=== PATIENT | female | born 1965 | race Caucasian/White ===

== ENCOUNTER → 2016-05-30 | Outpatient (CLI) | payer BC ==
[2014-10-17 06:48] VITALS: BP 108/63
[~2016-05-30] MED LIST: BIOT5TAB PO; CHOL5000 PO; ESOM40CA PO; LORA10TA3 PO; MULT1TAB52 PO; OXYC-250 PO; WHEA1POW5 PO
--- NOTE | 2016-05-30 12:34 | RAD ---
EXAM: Left thumb, 3 views. HISTORY: Pain. COMPARISON: None. FINDINGS:Frontal, lateral and oblique views of the left thumb are obtained. There is no fracture, dislocation or subluxation. No foreign body is seen. IMPRESSION: No acute osseous finding.
== END | disposition home or self-care (01) ==
LOC: DXRADRC 12:14
PROVIDERS: ATTEND Family Medicine
DX: M79.645 Pain in left finger(s) (principal)
CPT/HCPCS: 73140

== ENCOUNTER → 2016-09-12 | Outpatient (CLI) | payer BC ==
[2014-10-17 06:48] VITALS: BP 108/63
[~2016-09-12] MED LIST changes: -OXYC-250 PO; +OXYC-328 PO
--- NOTE | 2016-09-12 17:26 | RAD ---
Right foot, left foot, right hand and left hand radiographs 09/12/2016 at 1443 hours Indication: Polyarthralgia Comparison: None available Technique: 3 views of the right foot, 3 views of the left foot, 3 views the right hand and 3 views of the left hand are provided. Findings: Right foot: There is mild joint space narrowing at the first metatarsophalangeal joint with subchondral sclerosis. Otherwise, the joint spaces are maintained. No acute fracture or dislocation. No soft tissue swelling. No osseous erosions are identified. Posterior plantar calcaneal enthesophytes are noted. Left foot: Minimal joint space narrowing at the first metatarsophalangeal joint. There is osseous remodeling of the distal first metatarsal suggestive of prior trauma. There is no soft tissue swelling. No osseous erosions. No acute fracture or dislocation. Right hand: There is no acute fracture or dislocation. Joint spaces are maintained. No osseous erosions are identified. No soft tissue swelling. Left hand: There is no acute fracture or dislocation. Joint spaces are maintained. No osseous erosions are identified. No soft tissue swelling. Impression: 1. 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 2. No soft tissue swelling or osseous erosions identified involving the feet and hands. 3. No acute fracture or dislocation involving the right foot, left foot, right hand and left hand.
== END | disposition home or self-care (01) ==
LOC: DXRADRC 14:30
PROVIDERS: ATTEND Internal Medicine Rheumatology
DX: M19.071 Primary osteoarthritis, right ankle and foot (principal)
CPT/HCPCS: 73130; 73630

== ENCOUNTER → 2016-12-12 | Outpatient (CLI) | payer BC ==
[2014-10-17 06:48] VITALS: BP 108/63
--- NOTE | 2016-12-12 10:07 | RAD ---
Exam performed: 3 views right fifth digit. History: Pain, nodule felt at the approximate of indeterminate. Date of service: 12/12/16. Comparison: None available Findings 3 views right fifth digit including single view hand are obtained. Normal alignment is preserved. There is no acute fracture or dislocation. No soft tissue swelling or foreign body seen. Impression: Negative exam.
== END | disposition home or self-care (01) ==
LOC: DXRADRC 09:15
PROVIDERS: ATTEND Nurse Practitioner Family
DX: M79.644 Pain in right finger(s) (principal)
CPT/HCPCS: 73140

== ENCOUNTER → 2017-07-19 | Outpatient (CLI) | payer BC ==
[2014-10-17 06:48] VITALS: BP 108/63
--- NOTE | 2017-07-19 09:19 | RAD ---
DATE: 07/19/2017 EXAM: DIGITAL SCREEN BILAT W/CAD HISTORY: Routine screening COMPARISON: 01/17/2014 This study was interpreted with the benefit of Computerized Aided Detection (CAD). The breast parenchyma is dense, which could reduce the sensitivity of mammography. Breast parenchyma level density D. FINDINGS: No new or enlarging breast densities are seen. There are scattered microcalcifications in both breasts. The distribution suggests a benign etiology. IMPRESSION: There is no mammographic evidence of malignancy in either breast. BI-RADS CATEGORY: 2 BENIGN FINDING(S) RECOMMENDED FOLLOW-UP: 12M 12 MONTH FOLLOW-UP PQRS compliance statement: Patient information was entered into a reminder system with a target due date for the next mammogram. Mammography is a sensitive method for finding small breast cancers, but it does not detect them all and is not a substitute for careful clinical examination. A negative mammogram does not negate a clinically suspicious finding and should not result in delay in biopsying a clinically suspicious abnormality. "Our facility is accredited by the [employer] Mammography Program."
== END | disposition home or self-care (01) ==
LOC: MAMMO 08:07
PROVIDERS: ATTEND Nurse Practitioner Family
DX: Z12.31 Encounter for screening mammogram for malignant neoplasm of breast (principal)
CPT/HCPCS: 77067

== ENCOUNTER 2018-03-29 12:37 | Emergency (ER) | payer BC ==
[~2018-03-29] VITALS: Ht 170.2 cm; Wt 87.1 kg
[~2018-03-29 12:37] MED LIST changes: -OXYC-328 PO; +OXYC1TAB22 PO
--- NOTE | 2018-03-29 13:13 | RAD ---
CT HEAD WO CONTRAST History: Fall on ice today, headache, hit back of head Comparison: None. Technique: Noncontrast CT imaging was performed of the head. Exposure: One or more of the following individualized dose reduction techniques were utilized for this examination: 1. Automated exposure control 2. Adjustment of the mA and/or kV according to patient size 3. Use of iterative reconstruction technique. Findings: There is mild motion. No acute extra-axial or parenchymal hemorrhage is identified. There is no significant intra-axial mass effect, midline shift, or extra-axial fluid collection. The dahl-white differentiation of the major vascular territories is preserved. The ventricles, sulci, and cisterns are within normal limits in size and configuration. The mastoid air cells and the visualized paranasal sinuses are aerated. No acute calvarial abnormality is identified. Impression: 1. No acute intracranial abnormality is identified. Electronically signed by: Hiram Padilla MD (03/29/2018 1:09 PM) [id number]
--- NOTE | 2018-03-29 13:19 | PHYS DOC ---
Past History Past Medical History: Arthritis Past Surgical History: Knee Replacement, Other Alcohol Use: Occasionally Drug Use: None Adult General Chief Complaint Chief Complaint: head injury HPI HPI Patient is a 52 year old female who presents with complaining of a fall on ice and head injury. Patient states today she slipped on ice on side walk off her work area and landed on back of her head without loss of consciousness. Patient complaining of pain in back of her head and rated her pain as a moderate pain with nausea. Patient also complaining of injury to right elbow. Patient denies fever and chills, blurred vision, focal neuro deficit. Review of Systems Review of Systems Constitutional: Denies fever or chills [] Eyes: Denies change in visual acuity, redness, or eye pain [] HENT: Denies nasal congestion or sore throat [] Respiratory: Denies cough or shortness of breath [] Cardiovascular: No additional information not addressed in HPI [] GI: Denies abdominal pain, vomiting, bloody stools or diarrhea, reports nausea [ ] : Denies dysuria or hematuria [] Musculoskeletal: Denies back pain or joint pain [] Integument: Denies rash or skin lesions [] Neurologic: Reports headache, focal weakness or sensory changes [] Endocrine: Denies polyuria or polydipsia [] All other systems were reviewed and found to be within normal limits, except as documented in this note. Allergies Allergies Allergies Coded Allergies Type Severity Reaction Last Updated Verified morphine Adverse Reaction Mild 09/03/14 Yes Physical Exam Physical Exam Constitutional: Well developed, well nourished, mild distress, non-toxic appearance. [] HENT: Normocephalic, atraumatic, bilateral external ears normal, oropharynx moist, no oral exudates, nose normal. [] Eyes: PERRLA, EOMI, conjunctiva normal, no discharge. [] Neck: Normal range of motion, no tenderness, supple, no stridor. [] Cardiovascular:Heart rate regular rhythm, no murmur [] Lungs & Thorax: Bilateral breath sounds clear to auscultation [] Abdomen: Bowel sounds normal, soft, no tenderness, no masses, no pulsatile masses. [] Skin: Warm, dry, no erythema, no rash. [] Back: No tenderness, no CVA tenderness. [] Extremities: No tenderness, no cyanosis, no clubbing, ROM intact, no edema, right elbow without tenderness or deformity or erythema. [] Neurologic: Alert and oriented X 3, normal motor function, normal sensory function, no focal deficits noted. [] Psychologic: Affect normal, judgement normal, mood normal. [] Current Patient Data Vital Signs Vital Signs Date Time Temp Pulse Resp B/P (MAP) Pulse Ox O2 Delivery O2 Flow Rate FiO2 03/29/18 12:40 88 20 96 Room Air EKG EKG [] Radiology/Procedures Radiology/Procedures [address] [address] IMAGING REPORT Signed PATIENT: VITALIY JOSEPH ACCOUNT: [id number] : 1965 LOCATION: ER AGE: 52 SEX: F EXAM STATUS: REG ER ORD. PHYSICIAN: NIC FONTAINE MD REASON: fall on ice PROCEDURE: CT HEAD WO CONTRAST CT HEAD WO CONTRAST History: Fall on ice today, headache, hit back of head Comparison: None. Technique: Noncontrast CT imaging was performed of the head. Exposure: One or more of the following individualized dose reduction techniques were utilized for this examination: 1. Automated exposure control 2. Adjustment of the mA and/or kV according to patient size 3. Use of iterative reconstruction technique. Findings: There is mild motion. No acute extra-axial or parenchymal hemorrhage is identified. There is no significant intra-axial mass effect, midline shift, or extra-axial fluid collection. The dahl-white differentiation of the major vascular territories is preserved. The ventricles, sulci, and cisterns are within normal limits in size and configuration. The mastoid air cells and the visualized paranasal sinuses are aerated. No acute calvarial abnormality is identified. Impression: 1. No acute intracranial abnormality is identified. Electronically signed by: Chinyere Padilla MD (03/29/2018 1:09 PM) [id number] DICTATED AND SIGNED BY: CHINYERE PADILLA MD DATE: 03/29/18 1306 CC: NIC FONTAINE MD; MERY DORMAN MD ~ Course & Med Decision Making Course & Med Decision Making Pertinent Imaging studies reviewed. (See chart for details) [address] [address] IMAGING REPORT Signed PATIENT: VITALIY JOSEPH ACCOUNT: [id number] : 1965 LOCATION: ER AGE: 52 SEX: F EXAM STATUS: REG ER ORD. PHYSICIAN: NIC FONTAINE MD REASON: fall on ice PROCEDURE: CT HEAD WO CONTRAST CT HEAD WO CONTRAST History: Fall on ice today, headache, hit back of head Comparison: None. Technique: Noncontrast CT imaging was performed of the head. Exposure: One or more of the following individualized dose reduction techniques were utilized for this examination: 1. Automated exposure control 2. Adjustment of the mA and/or kV according to patient size 3. Use of iterative reconstruction technique. Findings: There is mild motion. No acute extra-axial or parenchymal hemorrhage is identified. There is no significant intra-axial mass effect, midline shift, or extra-axial fluid collection. The dahl-white differentiation of the major vascular territories is preserved. The ventricles, sulci, and cisterns are within normal limits in size and configuration. The mastoid air cells and the visualized paranasal sinuses are aerated. No acute calvarial abnormality is identified. Impression: 1. No acute intracranial abnormality is identified. Electronically signed by: Chinyere Padilla MD (03/29/2018 1:09 PM) [id number] DICTATED AND SIGNED BY: CHINYERE PADILLA MD DATE: 03/29/18 0180 CC: NIC FONTAINE MD; MERY DORMAN MD ~ [employer] Disclaimer Dragon Disclaimer This electronic medical record was generated, in whole or in part, using a voice recognition dictation system. Departure Departure: Impression: Primary Impression: Concussion Additional Impression: Fall from slipping on ice Disposition: 01 HOME, SELF-CARE (at 1342) Condition: IMPROVED Referrals: MERY DORMAN MD (PCP) Patient Instructions: Concussion and Brain Injury Additional Instructions: Drink plenty of liquids Follow-up with your primary care physician in 3-5 days Return to ER if not getting better Scripts Naproxen (NAPROSYN) 500 Mg Tablet 500 MG PO BID for pain, #20 TAB Prov: NIC FONTAINE MD 03/29/18 Cyclobenzaprine Hcl (CYCLOBENZAPRINE HCL) 10 Mg Tablet 1 TAB PO TID for pain, #30 TAB Prov: NIC FONTAINE MD 03/29/18 Problem Qualifiers NIC FONTAINE MD Mar 29, 2018 13:19
[2018-03-29] MEDS ORDERED: KETOROLAC 60 MG/2 ML VIAL. IM ONE ×2 (13:30→13:43)
[2018-03-29] MEDS ORDERED: NAPR-683 PO (13:34)
[2018-03-29] MEDS ORDERED: CYCL-331 PO (13:34)
[2018-03-29 13:59] VITALS: BP 121/80
== END 2018-03-29 14:01 | disposition home or self-care (01) ==
LOC: ER 12:37
DX: S06.0X0A Concussion without loss of consciousness, initial encounter (principal); M19.90 Unspecified osteoarthritis, unspecified site; Z88.5 Allergy status to narcotic agent; W00.0XXA Fall on same level due to ice and snow, initial encounter; Y93.89 Activity, other specified; Y92.480 Sidewalk as the place of occurrence of the external cause; Y99.8 Other external cause status
CPT/HCPCS: 70450; 96372; 99284; J1885

== ENCOUNTER → 2018-05-16 | Outpatient (CLI) | payer BC ==
[~2018-05-16] MED LIST changes: +CYCL-331 PO; +NAPR-683 PO
--- NOTE | 2018-05-16 15:42 | RAD ---
3 views of the right shoulder without comparison for right shoulder pain. FINDINGS: There is no fracture, dislocation, or acute osseous abnormality identified. Joints and soft tissues are grossly unremarkable. No significant degenerative changes. No suspicious calcifications. IMPRESSION: 1. No acute osseous abnormality of the right shoulder. Electronically signed by: Tomas Mercado MD (05/16/2018 3:39 PM) [id number]
== END | disposition home or self-care (01) ==
LOC: RAD 14:43
PROVIDERS: ATTEND Orthopaedic Surgery Sports Medicine
DX: M25.511 Pain in right shoulder (principal)
CPT/HCPCS: 73030

== ENCOUNTER → 2018-07-03 | Outpatient (CLI) | payer BC ==
--- NOTE | 2018-07-03 08:47 | RAD ---
Right ankle, 2 views, 07/03/2018: HISTORY: Ankle swelling There is a nondisplaced transverse fracture of the lateral malleolus with severe overlying soft tissue swelling. A tiny calcific density at the tip of the medial malleolus is compatible with an avulsion fracture of indeterminate age. No dislocation is evident. Right foot, 2 views, 07/03/2018: There is deformity of the first metatarsal head which is likely postsurgical. No acute foot fracture or dislocation is identified. There are mild scattered degenerative changes. IMPRESSION: 1. Nondisplaced lateral malleolar fracture. 2. Tiny cortical avulsion fracture at the tip of the medial malleolus of indeterminate age. Electronically signed by: Tone Islas MD (07/03/2018 8:44 AM) [facility]
== END | disposition home or self-care (01) ==
LOC: RAD 07:21
PROVIDERS: ATTEND Physician Assistant Medical
DX: S82.64XA Nondisplaced fracture of lateral malleolus of right fibula, initial encounter for closed fracture (principal); S82.51XA Displaced fracture of medial malleolus of right tibia, initial encounter for closed fracture; X58.XXXA Exposure to other specified factors, initial encounter; Y93.89 Activity, other specified; Y92.89 Other specified places as the place of occurrence of the external cause; Y99.8 Other external cause status
CPT/HCPCS: 73600; 73620

== ENCOUNTER → 2018-09-26 | Outpatient (CLI) | payer BC ==
--- NOTE | 2018-09-26 17:32 | RAD ---
INDICATION: Osteoporosis screening. Postmenopausal screening with history of fracture COMPARISON: None. TECHNIQUE: Bone densitometry was performed through the lumbar spine and right proximal femurs. FINDINGS: Lumbar Spine: L1-4 BMD: 1.45 T-Score: 2.3 Femoral Neck: BMD: 1.17 T-Score: 0.9 IMPRESSION: 1. Lumbar spine falls within the normal range. 2. Bilateral femoral neck falls within the normal range. Electronically signed by: Jonah Reyna MD (09/26/2018 5:29 PM) [facility]
--- NOTE | 2018-09-28 14:39 | RAD ---
DATE: 09/26/2018 3:30 PM EXAM: MAMMO CORNELIUS SCREENING BILATERAL HISTORY: routine screening evaluation. COMPARISON: 07/19/17 Bilateral CC and MLO views of the breasts were performed. Bilateral breast tomosynthesis was performed in CC and MLO projections. This study was interpreted with the benefit of Computerized Aided Detection (CAD). Breast Density: DENSE The breast Parenchyma is dense, which could reduce the sensitivity of mammography. Breast parenchyma level density D. FINDINGS: Benign calcifications are present. The parenchymal pattern appears stable. No suspicious masses, microcalcifications or architectural distortion is present to suggest malignancy in either breast. The visualized axillae are unremarkable. IMPRESSION: No mammographic evidence of malignancy. BI-RADS CATEGORY: 2 BENIGN FINDING(S) RECOMMENDED FOLLOW-UP: 12M 12 MONTH FOLLOW-UP Annual screening mammography is recommended, unless clinically indicated sooner based on symptoms or change in physical exam. PQRS compliance statement: Patient information was entered into a reminder system with a target due date for the next mammogram. Mammography is a sensitive method for finding small breast cancers, but it does not detect them all and is not a substitute for careful clinical examination. A negative mammogram does not negate a clinically suspicious finding and should not result in delay in biopsying a clinically suspicious abnormality. "Our facility is accredited by the [employer] Mammography Program."
== END | disposition home or self-care (01) ==
LOC: DXRAD 13:56
PROVIDERS: ATTEND Physician Assistant Medical
DX: Z12.31 Encounter for screening mammogram for malignant neoplasm of breast (principal); Z13.820 Encounter for screening for osteoporosis; N64.89 Other specified disorders of breast; N95.1 Menopausal and female climacteric states
CPT/HCPCS: 77063; 77067; 77080

== ENCOUNTER → 2018-10-16 | Outpatient (CLI) | payer BC ==
--- NOTE | 2018-10-16 16:10 | RAD ---
3 view study of the right ankle Clinical indications: Follow-up of fracture. COMPARISON: July 03, 2018. FINDINGS: Again seen is a transverse fracture of the distal left fibular metaphysis. The fracture is not healed. The edges appear sclerotic suggesting nonunion. Lateral soft tissue swelling has decreased. Mortise ankle joint remains intact. No lytic process is seen. 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 Electronically signed by: Gerry Ramirez MD (10/16/2018 4:07 PM) [facility]
== END | disposition home or self-care (01) ==
LOC: DXRAD 09:42
PROVIDERS: ATTEND Orthopaedic Surgery Sports Medicine
DX: S82.491K Other fracture of shaft of right fibula, subsequent encounter for closed fracture with nonunion (principal); X58.XXXD Exposure to other specified factors, subsequent encounter
CPT/HCPCS: 73610

== ENCOUNTER 2021-05-14 12:26 | Emergency (ER) | payer BC, OTHER ==
[~2021-05-14] VITALS: Ht 170.2 cm; Wt 108.2 kg
[~2021-05-14 12:26] MED LIST changes: -CYCL-331 PO; +CYCL10TA19 PO; +MULT-445 PO; -MULT1TAB52 PO
--- NOTE | 2021-05-14 13:45 | PHYS DOC ---
Past History Past Medical History: Arthritis Past Surgical History: Cholecystectomy, Knee Replacement, Other Additional Past Surgical Histo: gastric sleeve; knee surgery x 5; toes; R carpal tunneling; back surgery Alcohol Use: Occasionally Drug Use: None General Adult EDM: Chief Complaint: MECHANICAL FALL HPI: HPI: Patient is a 55-year-old female that presents today with back pain. Patient states that this morning she slipped on the ice and fell onto her bottom area on some steps and also abraded her elbows and forearms along the step above the steps that she landed on. Patient denies LOC or hitting her head. Patient states she took some Tylenol soon after the fall and has not helped with her pain, she is here to be checked out due to her history of having back surgery in the past. Patient did ambulate to the department and did drive herself to the emergency department as well. Review of Systems: Review of Systems: Constitutional: Denies fever or chills Eyes: Denies change in visual acuity HENT: Denies nasal congestion or sore throat Respiratory: Denies cough or shortness of breath Cardiovascular: Denies chest pain or edema GI: Denies abdominal pain, nausea, vomiting, bloody stools or diarrhea : Denies dysuria Musculoskeletal: Back pain and right elbow pain Integument: Abrasion to left forearm denies rash Neurologic: Denies headache, focal weakness or sensory changes Endocrine: Denies polyuria or polydipsia Lymphatic: Denies swollen glands Psychiatric: Denies depression or anxiety Allergies: Allergies: Allergies Coded Allergies Type Severity Reaction Last Updated Verified morphine Adverse Reaction Mild 05/14/21 Yes Physical Exam: PE: Constitutional: Well developed, well nourished, no acute distress, non-toxic appearance. [] HENT: Normocephalic, atraumatic, bilateral external ears normal, oropharynx moist, no oral exudates, nose normal. [] Eyes: PERRLA, EOMI, conjunctiva normal, no discharge. [] Neck: Normal range of motion, no tenderness, supple, no stridor, no midline tenderness [] Cardiovascular:Heart rate regular rhythm, no murmur [] Lungs & Thorax: Bilateral breath sounds clear to auscultation [] Abdomen: Bowel sounds normal, soft, no tenderness, no masses, no pulsatile masses. [] Skin: Abrasion to left forearm area no active bleeding noted Back: Patient has tenderness along the right SI joint, and to the right of the lumbar area around L4-L5, no numbness no tingling down the legs, patient does have midline tenderness throughout the thoracic and lumbar spine, no no abrasions, lacerations, contusions, or ecchymosis noted along the back area, right elbow tenderness noted no swelling, normal range of motion noted Extremities: No tenderness, no cyanosis, no clubbing, ROM intact, no edema. [] Neurologic: Alert and oriented X 3, normal motor function, normal sensory function, no focal deficits noted. [] Psychologic: Affect normal, judgement normal, mood normal. [] Current Patient Data: Vital Signs: Vital Signs Date Time Temp Pulse Resp B/P (MAP) Pulse Ox O2 Delivery O2 Flow Rate FiO2 05/14/21 12:35 98.0 86 18 134/76 (95) 97 Room Air EKG: EKG: [] Radiology/Procedures: Radiology/Procedures: REASON: fell and having back pain with hx of microdiscectomy PROCEDURE: CT THORACIC SPINE WO CONTRAST EXAM: CT THORACIC SPINE WITHOUT IV CONTRAST CT LUMBAR SPINE WITHOUT IV CONTRAST CLINICAL HISTORY: fell and having back pain with hx of microdiscectomy COMPARISON: None available. TECHNIQUE: This CT study consists of contiguous axial images performed through the thoracic and lumbar spine. Axial, sagittal and coronal reformatted images were also performed. PQRS compliance statement - One or more of the following individualized dose reduction techniques were utilized for this study: 1. Automated exposure control 2. Adjustment of the mA and/or kV according to patient size 3. Use of iterative reconstruction technique FINDINGS: Thoracic spine: Vertebral body heights are preserved. Trace disc height loss at several mid thoracic levels. No spondylolisthesis. No acute fracture. Lumbar spine: Vertebral body heights are preserved. No acute fracture. Severe L4-5 and moderate L5-S1 disc height loss. Multilevel facet degenerative changes are seen. No spondylolisthesis. Hepatic hypoattenuation, fatty liver. Cholecystectomy clips are seen. Nonobstructing right interpolar renal calculus. Splenic artery aneurysm. Gastric surgery is partially profiled IMPRESSION: 1. No acute fracture or subluxation of the thoracic or lumbar spine. 2. Degenerative changes greatest at L4-5 and L5-S1. 3. Hepatic hypoattenuation, fatty liver. 4. Nonobstructing right interpolar renal calculus. Electronically signed by: Gibson Frances MD (05/14/2021 1:58 PM) [facility] DICTATED AND SIGNED BY: GIBSON FRANCES MD DATE: 05/14/21 4138[] Heart Score: C/O Chest Pain: No Risk Factors: Risk Factors: DM, Current or recent (<one month) smoker, HTN, HLP, family history of CAD, obesity. Risk Scores: Score 0 - 3: 2.5% MACE over next 6 weeks - Discharge Home Score 4 - 6: 20.3% MACE over next 6 weeks - Admit for Clinical Observation Score 7 - 10: 72.7% MACE over next 6 weeks - Early Invasive Strategies Course & Med Decision Making: Course & Med Decision Making Pertinent Labs and Imaging studies reviewed. (See chart for details) 4114 reviewed radiological results with patient did inform her there was no acute process at this time, informed her that back pain related to her fall and that the Naprosyn she is taking for her pain in her back should help with that, I will also supplement with cyclobenzaprine 3 times daily as needed for muscle spasms. Patient is to ice the affected area 20 minutes on 3-4 times daily also she has Lidoderm patches at home for various aches and pains and I said to try those on her back. Patient verbalizes understanding and is agreeable to the plan of care. [place] Disclaimer: Myke Disclaimer: This electronic medical record was generated, in whole or in part, using a voice recognition dictation system. Departure Departure: Impression: Primary Impression: Fall Qualified Codes: W19.XXXA - Unspecified fall, initial encounter Additional Impression: Low back sprain Qualified Codes: S33.5XXA - Sprain of ligaments of lumbar spine, initial encounter Disposition: HOME / SELF CARE / HOMELESS Condition: STABLE Referrals: CASEY CORTES (PCP) Patient Instructions: Back Pain, Adult Additional Instructions: Ice 20 minutes on 3-4 times daily Continue with your Naprosyn that you have at home as directed Cyclobenzaprine 10 mg take 1 tablet every 8 hours as needed for muscle spasms, use with caution may cause drowsiness Lidoderm patches [id number] 12 hours on 12 hours off Follow-up with your primary care physician if your back pain continues after 5 to 7 days. Return to the emergency department you have loss of bowel or bladder control, inability to use one of your legs, or have pain that is not controlled by the cyclobenzaprine or the Naprosyn. Scripts Cyclobenzaprine Hcl (CYCLOBENZAPRINE HCL) 10 Mg Tablet 1 TAB PO TID PRN PRN for PAIN, #20 TAB Prov: HERRERA SOSA APRN 05/14/21 HERRERA SOSA APRN May 14, 2021 13:45
--- NOTE | 2021-05-14 14:00 | RAD ---
EXAM: CT THORACIC SPINE WITHOUT IV CONTRAST CT LUMBAR SPINE WITHOUT IV CONTRAST CLINICAL HISTORY: fell and having back pain with hx of microdiscectomy COMPARISON: None available. TECHNIQUE: This CT study consists of contiguous axial images performed through the thoracic and lumb ar spine. Axial, sagittal and coronal reformatted images were also performed. PQRS compliance statement - One or more of the following individualized dose reduction techniques wer e utilized for this study: 1. Automated exposure control 2. Adjustment of the mA and/or kV according to patient size 3. Use of iterative reconstruction technique FINDINGS: Thoracic spine: Vertebral body heights are preserved. Trace disc height loss at several mid thoracic levels. No spond ylolisthesis. No acute fracture. Lumbar spine: Vertebral body heights are preserved. No acute fracture. Severe L4-5 and moderate L5-S1 disc height l oss. Multilevel facet degenerative changes are seen. No spondylolisthesis. Hepatic hypoattenuation, fatty liver. Cholecystectomy clips are seen. Nonobstructing right interpolar renal calculus. Splenic artery aneurysm. Gastric surgery is partially profiled IMPRESSION: 1. No acute fracture or subluxation of the thoracic or lumbar spine. 2. Degenerative changes greatest at L4-5 and L5-S1. 3. Hepatic hypoattenuation, fatty liver. 4. Nonobstructing right interpolar renal calculus. Electronically signed by: Gibson Frances MD (05/14/2021 1:58 PM) [facility]
[2021-05-14] MEDS: KETOROLAC 30 MG/ML VIAL. IM ONE (14:33)
[2021-05-14] MEDS ORDERED: CYCL10TA19 PO (14:50)
[2021-05-14 15:20] VITALS: BP 133/76
== END 2021-05-14 15:20 | disposition home or self-care (01) ==
LOC: ER 12:26
DX: S33.5XXA Sprain of ligaments of lumbar spine, initial encounter (principal); S50.812A Abrasion of left forearm, initial encounter; M19.90 Unspecified osteoarthritis, unspecified site; Z88.5 Allergy status to narcotic agent; W00.0XXA Fall on same level due to ice and snow, initial encounter; Y93.89 Activity, other specified; Y92.89 Other specified places as the place of occurrence of the external cause; Y99.8 Other external cause status
CPT/HCPCS: 72128; 72131; 96372; 99284; J1885